=== PATIENT | female | born 1990 | race Caucasian/White ===

== ENCOUNTER 2016-08-18 19:56 | Emergency (ER) | payer OTHER | END 2016-08-18 22:15 | disposition home or self-care (01) | LOC: ER1 19:56 | DX: S83.512A Sprain of anterior cruciate ligament of left knee, initial encounter (principal); F17.210 Nicotine dependence, cigarettes, uncomplicated; X58.XXXA Exposure to other specified factors, initial encounter | CPT/HCPCS: 73564; 99283 ==